=== PATIENT | female | born 1970 | race Caucasian/White ===

== ENCOUNTER → 2017-06-10 11:01 | Outpatient (CLI) | payer OTHER, SELFPAY ==
--- NOTE | 2017-06-10 11:04 | HPBI_ITS ---
MAMMOGRAPHY - BILATERAL SCREENING REASON FOR EXAM: Female, 46 years old. Routine annual screening examination. PERTINENT HISTORY: Mother with breast cancer. TECHNIQUE: Digital bilateral breast juan c (3D mammographic acquisition) in the CC and MLO projections. 2-D mediolateral oblique (MLO) and craniocaudad (CC) views of both breasts were obtained. CAD: Full Field Digital Mammography with Computer Added Detection was performed. COMPARISON: Comparison is made with prior study dated July 13, 2014. FINDINGS: Breast Composition: The breasts are heterogeneously dense, which may obscure small masses. There are no dominant masses or suspicious calcifications. No other significant abnormalities are identified. There has been no significant change since the prior study. HPBI/SCREENING MAMM (CAD), BILAT IMPRESSION: Stable bilateral screening mammogram. Yearly follow-up mammogram recommended. (A) ASSESSMENT CATEGORY: BIRADS Category 1: Negative. A letter regarding these results will be sent to the patient by the facility within 30 days. Approximately 10% of breast cancers are not detected by mammography. A normal mammogram should not delay biopsy of a clinically suspicious abnormality. [id number] Electronically Signed: Jovanny Souza MD at 12:45 EST Tel [phone], Service support ,
== END ==
PROVIDERS: Family Provider Internal Medicine; PCP Internal Medicine; Visit Provider Internal Medicine
DX: Z12.31 Encounter for screening mammogram for malignant neoplasm of breast (principal)
CPT/HCPCS: 77063; 77067

== ENCOUNTER → 2018-02-09 15:19 | Outpatient (CLI) | payer OTHER, SELFPAY ==
--- NOTE | 2018-02-09 15:23 | RAD_ITS ---
STUDY: X-RAY - LUMBAR SPINE REASON FOR EXAM: Female, 47 years old. Low back pain, left greater than right. TECHNIQUE: 5 view(s) of the lumbar spine were obtained. COMPARISON: None FINDINGS: Normal lumbar lordosis. There is no substantial scoliosis. There is a normal alignment of the vertebrae. Normal vertebral bodies. L3-4 small marginal osteophytes. L5-S1 mild disc space narrowing. The soft tissue structures are unremarkable. RAD/L/S Spine Min 4 Views IMPRESSION: Mild degenerative changes of lower lumbar spine. Electronically Signed: Gene Edmond MD at 7:29 EDT , Service support ,
== END ==
PROVIDERS: Family Provider Internal Medicine; PCP Internal Medicine; Referring Provider Nurse Practitioner; Visit Provider Nurse Practitioner
DX: M54.5 Low back pain (principal)
CPT/HCPCS: 72110

== ENCOUNTER 2018-02-21 14:30 | Outpatient (RCR) | payer OTHER, SELFPAY ==
--- NOTE | 2018-02-11 07:17 | HP.PTEVAL ---
Patient's Visit Information WOJCIECH GILES is a 47 year old F referred to Physical Therapy by Isabel Reyna with a diagnosis of LBP and sciatica. Date of Evaluation: 02/10/18 Physical Therapist: Juliann Lindo - Visit Plan Frequency: 2x /Week Duration: 4 Weeks Plan: Focus on lumbar ROM, pain free hip ROM, strengthen core, hip, lumbar and pelvic stabilization. Check for pelvic rotation - Subjective Subjective: Pt. c/o L LBP. Extreme pain began this past weekend; pain described as intense as giving . Having muscle spasms upon any forward trunk movement. Pt. thought menstrual cramp related, but too intense. Pt. thought could be kidney stone. Hx of kidney stone 1 year ago. Saw physcian earlier this week and he suspected herniated lumbar disc; radiographs showing lumbar degeneration. No MRI until after physical therapy. Pt. has been urinating more frequently and did urine test at appointment, no results. Sciatic pain on L side not an issue currently. Occasional numbness/tingling to mid L thigh. LBP located on L side, described as achy. Current pain 5/10, worst 10/10. Pt. 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 She is aware of her posture and makes sure she is in proper alignment. Takes Ambien at night and slept well last night. Recently got new bed that adjusts to the individual and is comfortable in it. Able to sit in hard back chair for about 5 minutes before pain. Can stand for about 30 minutes. Similar LBP has come and gone in past, but never this intense. Able to dress; takes breaks when cooking and has not cleaned yet. Has not been out of house much since the weekend. Medications include Prozac, Ambien. Goal to decrease pain. - Objective Gait: walks with posterior pelvis/ anterior trunk position,. Posture: rounded shoulders, sits on edge of chair with erect posture throughout session. Stairs: ascend stairs reciprocally with 1 HR, appears hesitant upon descending reciprocally. Dermatomes: LE intact bilat. AROM: lumbar flex. to mid calf, ext. approx 5 deg, side bend mid thigh, rotation approx 20 deg; motions did not appear to be end range due to pt. hesitation. L hip motions caused a different feel in L low back, pain and hesitation with ER/IR. Knee and ankle WFL. Able to toe and heel raise without UE support. Balance: SL 15+seconds bilat. Strength: L hip flex. and ext. 4/5, abd., add., 3+/5, IR/ER 3/5, L knee ext./flex 4/5, ankle 5/5 throughout. Core strength fair. Palpation: TTP PSIS on L and L piriformis near greater trochanter. ASIS aligned, tibial tuberosities L leg lower, malleoli L lower. After muscle energy, landmarks equal throughout. L ASIS decreased mobility upon palpation. Flexibility: no restriction hamstring, gastroc, soleus. Pain limited testing of L hamstring length. Special tests: Slump on L (+) - Goals Goal 1:: Patient will be I with HEP and progressions. Goal Time Frame: 4-6 Weeks Goal 2:: Patient will increase lumbar range of motion WFL and achieve pain free hip range of motion. Goal Time Frame: 4-6 Weeks Goal 3:: Patient will demonstrate pain equal or less than 3/10 for 1 week. Goal Time Frame: 4-6 Weeks Goal 4:: Patient will increase hip strength to 5/5 in order to maintain proper pelvic alignment. Goal Time Frame: 4-6 Weeks - Rehabilitation Potential Physical Therapy Diagnosis: Patient presents with hypomobility. Decreased lumbar range of motion and decreased hip strength along with pain and fear of movement limiting patient from functional participation in pain free activity and prolonged positioning. Rehabilitation Potential: Good - Anticipated Interventions Patient/Client Instruction: Educate patient on: Condition For the Purpose of:: To decrease pain, To increase ROM, To improve muscle performance and motor function, To increase tolerance to activity/condition/position, To improve endurance Therapeutic Exercise to Include: Strength training, Power training, Endurance training, Coordination, Agility training, Body mechanics, Flexibilty training, Active ROM, Dynamic Lumbar Stabilization For the Purpose of:: To decrease pain, To increase ROM, To improve nutrient delivery to tissue, To improve muscle performance and motor function, To improve ability to perform ADL's, To increase tolerance to activity/condition/position, To increase flexibility/ROM, To improve endurance, To assume or resume ADL's, To improve tolerance to ADL's TENS: Yes Cryotherapy (ice pack, ice massage): Yes Thermo therapy (hot pack): Yes Ultrasound (thermal/non thermal): Yes For the Purpose of:: To decrease pain Thank you for the opportunity to evaluate your patient. For Medicare and Medicare HMO plans, please review the plan of care and approve it. It will need to be FAXED BACK to us at [phone] for Medicare purposes. Please let me know if there are questions or concerns regarding this plan of care. Physician Signature: Date:
--- NOTE | 2018-03-02 15:24 | HP.PT.NRP ---
HP - Discharge Summary (1) - Patient Information WOJCIECH GILES was seen in my office for initial evaluation on 02/10/18. The following Plan of Care was established for this patient: Initial Frequency: 2x /Week Initial Duration: 4 Weeks - Anticipated Interventions Patient/Client Instruction: Educate patient on: Condition For the Purpose of:: To decrease pain, To increase ROM, To improve muscle performance and motor function, To increase tolerance to activity/condition/position, To improve endurance Therapeutic Exercise to Include: Strength training, Power training, Endurance training, Coordination, Agility training, Body mechanics, Flexibilty training, Active ROM, Dynamic Lumbar Stabilization For the Purpose of:: To decrease pain, To increase ROM, To improve nutrient delivery to tissue, To improve muscle performance and motor function, To improve ability to perform ADL's, To increase tolerance to activity/condition/position, To increase flexibility/ROM, To improve endurance, To assume or resume ADL's, To improve tolerance to ADL's TENS: Yes Cryotherapy (ice pack, ice massage): Yes Thermo therapy (hot pack): Yes Ultrasound (thermal/non thermal): Yes For the Purpose of:: To decrease pain This patient was last seen in our office . Pertinent comments regarding their Physical therapy will appear below: Patient called and reported that she was happy and having no more pain so she would like to be discharged to continue at home. At this point I will be discontinuing this patient from physical therapy. I would be happy to see this patient again in the future if found appropriate by the physician. Thank you! Juliann Lindo
== END 2018-02-21 19:00 | disposition home or self-care (01) ==
LOC: PT 14:30
PROVIDERS: Family Provider Internal Medicine; PCP Internal Medicine; Referring Provider Nurse Practitioner; Visit Provider Nurse Practitioner
DX: M54.40 Lumbago with sciatica, unspecified side (principal)
CPT/HCPCS: 97014; 97110; 97161; G0283

== ENCOUNTER → 2019-04-04 15:27 | Outpatient (CLI) | payer OTHER, SELFPAY ==
--- NOTE | 2019-04-04 15:30 | BI_ITS ---
MAMMOGRAPHY - BILATERAL SCREENING 3-D TOMOSYNTHESIS REASON FOR EXAM: Female, 48 years old. PERTINENT HISTORY: No significant family history. TECHNIQUE: 2-D mammograms and 3-D Tomosynthesis of the breast (s) were performed. CAD was performed. COMPARISON: June 10, 2017 FINDINGS: The breast composition is heterogeneous lesions that may obscure small masses. Normal microcalcifications. No dense spiculated masses or suspicious microcalcifications are identified. No architectural distortion is identified. There is no skin thickening or nipple retraction. There has been no significant change since the prior study of June 10, 2017. BI/SCREEN MAMM (CAD) W/GENOVEVA BILAT IMPRESSION: No mammographic signs of malignancy. Routine yearly mammograms recommended. ASSESSMENT CATEGORY: BIRADS Category 1: Negative. A letter regarding these results will be sent to the patient by the facility within 30 days. FOLLOW UP RECOMMENDATION: Yearly follow up mammogram recommended. (A) Approximately 10% of breast cancers are not detected by mammography. A normal mammogram should not delay biopsy of a clinically suspicious abnormality. Electronically Signed: Mary Ellen Tesfaye, at 12:48 EST Tel , Service support ,
== END ==
PROVIDERS: Family Provider Internal Medicine; PCP Internal Medicine; Referring Provider Internal Medicine; Visit Provider Internal Medicine
DX: Z12.31 Encounter for screening mammogram for malignant neoplasm of breast (principal)
CPT/HCPCS: 77063; 77067

== ENCOUNTER → 2020-06-20 13:20 | Outpatient (CLI) | payer OTHER, SELFPAY ==
--- NOTE | 2020-06-20 13:25 | CT_ITS ---
STUDY: CT ABDOMEN AND PELVIS WITH AND WITHOUT CONTRAST REASON FOR EXAM: Female, 49 years old. RECENT LEFT RENAL STONE -- STILL HAVING LEFT FLANK/BACK PAIN RADIATION DOSAGE (If Supplied By Facility): CTDIvol = ( 11.77 ) mGy, DLP = ( 1340.82 ) mGycm TECHNIQUE: Transaxial images were obtained from the dome of the diaphragm to the symphysis pubis without oral contrast. IV 100mL Isovue-300 was administered. Sagittal and coronal images were reconstructed. Individualized dose optimization techniques were used for this CT. COMPARISON: None. FINDINGS: The visualized lung bases are unremarkable. The visualized portions of the heart are within normal limits. Normal liver. Normal gallbladder and extrahepatic biliary system. Normal spleen. Normal pancreas. Normal bilateral adrenal glands. Normal right kidney. Normal left kidney. Normal visualized stomach. Normal small intestine. Normal colon. The appendix is visualized and appears normal. Normal abdominal aorta. Normal inferior vena cava. Normal retroperitoneum. Normal urinary bladder. Normal abdominal wall. Normal osseous structures. CT/CT Abd/Pelvis W/WO Contrast IMPRESSION: Normal unenhanced and enhanced CT of the abdomen and pelvis. Electronically Signed: Tom Kevin MD at 14:11 EST Tel , Service support ,
== END ==
PROVIDERS: PCP Internal Medicine; Referring Provider Internal Medicine; Visit Provider Internal Medicine
DX: R10.9 Unspecified abdominal pain (principal); Z87.442 Personal history of urinary calculi
CPT/HCPCS: 74178; Q9967

== ENCOUNTER → 2020-06-21 | Outpatient (CLI) | payer OTHER, SELFPAY ==
[2017-07-22 12:44] VITALS: BMI 24.0
[2020-06-21 13:18] LABS: Absolute Lymphocyte Count 0.58 X10^3/uL (0.83-4.51); Absolute Neutrophil Count 3.4 X10^3/uL (2.0-7.7); Basophil# 0.06 X10^3/uL; Basophil% 1.2 % (0-1); Eosinophil# 0.07 X10^3/uL; Eosinophils% 1.4 % (0-5); Hematocrit 37.9 % (37-47); Hemoglobin 12.7 g/dL (12.0-15.0); Lymphocyte # 0.58 X10^3/ul (4.0); Lymphocyte % 11.6 % (19-41); Mean Corp Hgb Conc 33.5 g/dL (32-36); Mean Corpuscular Hgb 31.8 pg (27.0-32.0); Mean Corpuscular Volume 94.8 fL (81-99); Mean Platelet Vol. 9.7 fl (6.2-12.0); Monocyte# 0.88 X10^3/uL; Monocyte% 17.6 % (0-10); NRBC Flagged by Analyzer 0 % (0-5); Neutrophil # 3.38 X10^3/uL (2.7-7.7); Neutrophil % 67.8 % (47-70); POSITIVE DIFFERENTIAL YES; Platelet Count 301 K/mm3 (150-450); RBC Distribution Width CV 11.8 % (11.6-14.6); RBC Distribution Width SD 41.3 fl (35.1-43.9)
[2020-06-21 13:22] LABS: CRP < 2.90 mg/L (0.0-3.0)
[2020-06-21 13:30] LABS: Erythrocyte Sedimentation Rate 11 mm/hr (0-30)
== END | disposition home or self-care (01) ==
PROVIDERS: PCP Internal Medicine; Referring Provider Internal Medicine; Visit Provider Internal Medicine
DX: J39.1 Other abscess of pharynx (principal); J32.9 Chronic sinusitis, unspecified
CPT/HCPCS: 85025; 85652; 86140; 87070; 87077

== ENCOUNTER → 2020-06-28 13:01 | Outpatient (CLI) | payer OTHER, SELFPAY ==
[2017-07-22 12:44] VITALS: BMI 24.0
--- NOTE | 2020-06-28 13:02 | BI_ITS ---
MAMMOGRAPHY - BILATERAL SCREENING REASON FOR EXAM: Female, 49 years old. Routine annual screening examination. PERTINENT HISTORY: Mother with breast cancer. TECHNIQUE: Digital bilateral breast genoveva (3D mammographic acquisition) in the CC and MLO projections. 2-D mediolateral oblique (MLO) and craniocaudad (CC) views of both breasts were obtained. CAD: Full Field Digital Mammography with Computer Added Detection was performed. COMPARISON: Comparison is made with prior study 04/04/2019 and 06/10/2017. FINDINGS: Breast Composition: The breasts are heterogeneously dense, which may obscure small masses. There is a 6.3 mm x 7.5 mm well-defined nodule in the deep upper lateral portion of the left breast. Correlation with ultrasound is recommended. No other significant abnormalities are identified. BI/SCRN MAMM (CAD)W/GENOVEVA BILAT IMPRESSION: 6.3 mm x 7.5 mm well-defined nodule in the deep upper lateral portion of left breast. Correlation with ultrasound is recommended. ASSESSMENT CATEGORY: BIRADS Category 0: Incomplete. Need additional imaging evaluation. A letter regarding these results will be sent to the patient by the facility within 30 days. Approximately 10% of breast cancers are not detected by mammography. A normal mammogram should not delay biopsy of a clinically suspicious abnormality. [id number] Electronically Signed: Jovanny Souza MD at 14:22 EST , Service support ,
== END ==
PROVIDERS: PCP Internal Medicine; Referring Provider Internal Medicine; Visit Provider Internal Medicine
DX: Z12.31 Encounter for screening mammogram for malignant neoplasm of breast (principal); N63.20 Unspecified lump in the left breast, unspecified quadrant; Z80.3 Family history of malignant neoplasm of breast
CPT/HCPCS: 77063; 77067

== ENCOUNTER → 2020-07-02 12:25 | Outpatient (CLI) | payer OTHER, SELFPAY ==
--- NOTE | 2020-07-02 12:26 | US_ITS ---
STUDY: ULTRASOUND BREAST - LEFT REASON FOR EXAM: Female, 49 years old. Abnormal screening mammogram. TECHNIQUE: Axial and longitudinal images of the LEFT breast were performed with a high resolution ultrasound transducer. # OF IMAGES: 46 COMPARISON: Comparison is made with prior mammogram dated 06/28/2020. FINDINGS: LEFT Breast: The mammographic abnormality corresponds to a 7 mm x 7 mm x 4 mm cyst at the 1 o''clock position of the breast at 7 cm from the nipple. US/Breast Limited Unilateral IMPRESSION: The mammographic abnormality corresponds to a 7 mm x 7 mm x 4 mm cyst at the 1 o''clock position of the breast at 7 cm from the nipple. ASSESSMENT CATEGORY: BIRADS Category 2: Benign. A letter regarding these results will be sent to the patient by the facility within 30 days. Electronically Signed: Jovanny Souza MD at 13:56 EST , Service support ,
== END ==
PROVIDERS: PCP Internal Medicine; Referring Provider Internal Medicine; Visit Provider Internal Medicine
DX: N60.02 Solitary cyst of left breast (principal)
CPT/HCPCS: 76642

== ENCOUNTER 2024-08-02 17:11 | Emergency (ER) | payer OTHER, SELFPAY ==
[2024-08-02 17:12] VITALS: BP 197/88; PULSE 107; RESP 18; TEMP 36.6; O2SAT 100; BMI 25.9
--- NOTE | 2024-08-02 17:31 | ED.VIS.DYS ---
HPI History of Present Illness Chief Complaint: Shortness of Breath PFSH PFSH Medical History History of kidney stones History of skin cancer Home Medications ?Medication ?Instructions ?Recorded ?Last Taken ?Type acetaminophen 325 mg tablet 325 mg PO Q4H PRN PRN Pain 03/22/17 Unknown History zolpidem 10 mg tablet 1 tab PO QHS 03/22/17 Unknown History fluoxetine 40 mg capsule (Prozac) 40 mg PO QDAY 07/12/17 Unknown History gabapentin 100 mg capsule 100 mg PO TID 08/02/24 Unknown History methylphenidate HCl 18 mg 18 mg PO 08/02/24 Unknown History tablet,extended release 24 hr Allergy/AdvReac Type Severity Reaction Status Date / Time Sulfa (Sulfonamide Allergy Intermediate Hives Verified 07/12/17 14:46 Antibiotics) Latex, Natural Rubber Allergy Mild itching Verified 07/12/17 14:46 Family History Other Breast cancer Heart disease Kidney disease Myocardial infarction Social History Smoking Status: Former smoker alcohol intake: current alcohol intake frequency: 0-2 drinks per day substance use type: does not use what type of physical activity do you participate in: none EXAM Physical Exam Const Vital Signs: 08/02/24 17:12 08/02/24 17:20 08/02/24 17:53 Temperature 97.9 F Temperature Source Oral Pulse Rate 107 H Respiratory Rate 18 Respiratory Effort Short of Breath Blood Pressure 197/88 H Blood Pressure Mean 124 Pulse Ox 100 Oxygen Delivery Method Room Air Room Air Room Air 08/02/24 19:12 Temperature Temperature Source Pulse Rate Respiratory Rate Respiratory Effort Blood Pressure 138/87 H Blood Pressure Mean 104 Pulse Ox 97 Oxygen Delivery Method Room Air MDM MDM MDM Narrative Medical decision making narrative: HISTORY OF PRESENT ILLNESS: 54-year-old female presents with concern for a side effect of the recent increase in gabapentin dosage. She notes last night she increased the dose. She states she feels like her throat is tightening. She notes shortness of breath and feeling dizzy. Notes 24 hours of symptoms. Denies fabio chest pain. Symptoms are exertional. No lower extremity edema. No bleeding diathesis. No vomiting or diarrhea noted. The patient denies recent surgery in the last 4 weeks or immobilization in the last 3 days, denies previous diagnosis of DVT or PE, hemoptysis, unilateral leg swelling or malignancy with treatment the last 6 months or palliative. No estrogen use noted. No cough fever chills noted. REVIEW OF SYSTEMS: Pertinent positives: Globus sensation, shortness of breath and dizziness Pertinent negatives: Chest pain, fever PHYSICAL EXAM: Nursing triage notes reviewed, Vital signs reviewed Constitutional: please see [facility] HENT: MMM Eyes: Pupils equal round and reactive to light, Extraocular muscles intact Neck: No stridor, no JVD, full neck ROM Lungs: Clear to auscultation, No wheezing or rales. No increased work of breathing, no conversational dyspnea, no accessory muscle use, no nasal flaring. No respiratory distress noted Heart: Regular rate and rhythm, No murmurs, No rubs and No gallops, 2+ distal pulses (radial, femoral, posterior tibial) in all extremities Abdomen: Soft, there is no tenderness, rigidity, rebound or guarding, no obvious peritoneal signs, no palpable pulsatile abdominal masses, no auscultated abdominal bruit : No CVAT Extremities: No edema Neuro: No new focal neurological deficits, cranial nerves II through XII intact, 5/5 strength in all present extremities. Intact sensation to light touch in all present extremities, 2+ reflexes bilateral patella tendons. Skin: No rash or lesions noted MEDICAL DECISION MAKING: Chief Complaint: As per HPI [facility] Narrative: I considered the following differential diagnosis: Arrhythmia, anemia, electro disturbance, CHF, ACS, PE I considered pulmonary malignancy potential etiology the patient lowers well score and as such low suspicion for PE ALL IMAGES (IF OBTAINED) HAVE BEEN PERSONALLY REVIEWED AND INTERPRETED BY MYSELF. EKG with normal sinus rhythm rate of 93, normal axis, no intervals, no STEMI CBC without leukocytosis, severe anemia, no thrombocytopenia. BMP without evidence of significant electrolyte abnormalities, no anion gap, no acute kidney injury. High-sensitivity troponin is negative, no evidence of myocardial ischemia I have personally reviewed the patient's chest x-ray. Chest x-ray is unremarkable for pulmonary edema, pneumothorax, pneumonia or focal cardiopulmonary abnormality. The synthesis of the patient's history, physical exam, labs and images suggest no acute life-limiting etiology. The etiology of patient's complaint zahra unclear however it is most likely not life-threatening. She is appropriate for discharge home. Strict return precaution were discussed. Follow-up instructions discussed. The patient and/or family, caregivers express understanding. The patient and/or family, caregivers agrees with the plan. Shared decision making: I will have a discussion with the patient and or visitors regarding risk/benefits of further testing or admission. They will be made aware of of the risk/benefits inherent in this decision they will be given the opportunity to voice understanding. Total critical care time today provided was at least 0 minutes. This excludes separately billable procedures. Critical care time (if documented) is secondary to the patient having high probability of clinically significant/life threatening deterioration in the patient's condition which required my urgent intervention. Impression: 1. Shortness of breath 2. Adverse medication Dispo: Discharge This note was generated with [employer] dictation software. It may contain incorrect words, spelling, and punctuation that were not noted in review of the chart prior to signing. Lab Data Labs: Laboratory Results - last 24 hr 08/02/24 08/02/24 18:40 19:00 WBC 8.5 RBC 4.37 Hgb 14.1 Hct 39.1 MCV 89.5 MCH 32.3 H MCHC 36.1 H RDW Std Deviation 36.8 RDW Coeff of Colin 11.3 L Plt Count 323 MPV 9.0 Immature Gran % (Auto) 0.200 Neut % (Auto) 82.0 H Lymph % (Auto) 8.9 L Hemphill % (Auto) 8.3 Eos % (Auto) 0.2 Baso % (Auto) 0.4 Absolute Neuts (auto) 7.0 Absolute Lymphs (auto) 0.76 L Nucleated RBC % 0 Sodium 131 L Potassium 4.4 Chloride 95 L Carbon Dioxide 23.5 Anion Gap 12 BUN 16 Creatinine 0.75 Estim Creat Clear Calc 82.54 Est GFR (MDRD) Non-Af 95 BUN/Creatinine Ratio 21.8 H Glucose 86 Calcium 9.2 Troponin T High Sens 9 Radiography Diagnostic Testing: Clinical Impression(s) from Imaging Studies Chest X-Ray 08/02/24 18:40 IMPRESSION: Negative Chest. Reading Location: [facility] Discharge Plan Triage Chief Complaint: Shortness of Breath ED Provider: Brayan Barnes Dx/Rx/DC Orders Instructions: ED Dyspnea Prescriptions: No Action fluoxetine [Prozac] 40 mg capsule 40 mg PO QDAY acetaminophen 325 MG tablet 325 mg PO Q4H PRN PRN (Reason: Pain) zolpidem 10 MG tablet 1 tab PO QHS Patient Comments: gabapentin 100 mg capsule 100 mg PO TID methylphenidate HCl 18 mg tablet extended release 24hr 18 mg PO Primary Care Provider: Abby Cabral Referrals: Estela Partida DO [Med Staff - [facility]] - Activity Restrictions/Additional Instructions: Thank you for trusting us with your care today! Your labs images were reassuring. No sign of damage to your heart, heart failure, abnormal heart rhythms etc. Please take Tylenol (2 pills, 650 mg), ibuprofen (2 pills, 400 mg) every 6 hours as needed for pain and fever control. Please return to the emergency department if your symptoms change or worsen. Please follow with your primary care physician for further outpatient evaluation and management. Specifically assess medical appropriateness for Holter monitor, echocardiogram, possibly stress test. Print Language: British Disposition Disposition: Home, Self Care
--- NOTE | 2024-08-02 17:50 | EKG12_ITS ---
Test Reason : Blood Pressure : */* mmHG Vent. Rate : 93 BPM Atrial Rate : 93 BPM P-R Int : 128 ms QRS Dur : 82 ms QT Int : 356 ms P-R-T Axes : 60 43 49 degrees QTcB Int : 442 ms Normal sinus rhythm Normal ECG Confirmed by CURTIS DIALLO, ADRIANNE ([id number]), fashion editor GUANACO ADAME ([id number]) on 08/03/2024 8:06:55 AM Referred By: Confirmed By: ADRIANNE ACEVEDO MD
--- NOTE | 2024-08-02 18:40 | RAD_ITS ---
PROCEDURE: CHEST 1 VIEW (PORTABLE) 08/02/2024 REASON FOR EXAM: 54-year-old female, shortness of breath and dizziness. History of anxiety. TECHNIQUE: Frontal view of the chest. COMPARISON: None. FINDINGS: Hardware: None. Heart: Cardiac and mediastinal contours are stable. Lungs: No focal consolidation, pleural effusion or pneumothorax. Bones: The bones are unremarkable. RAD/Chest 1 View (Portable) IMPRESSION: Negative Chest. Reading Location: [id number]
--- NOTE | 2024-08-02 18:50 | ED.RN ---
Pt refusing IV.
--- NOTE | 2024-08-02 18:54 | ED.RN ---
when attempting to start an ultrasound guided IV, pt stops this RN and states this is going to hurt like hell, i dont want this. this rn explains that if pt were to require a CT scan or further blood work after the initial, we would have to proceed with the IV. pt states well i won't need a CT scan. if i was having heart attack maybe i would do the iv. this rn states understanding. pt agreeable to straight stick for blood draw. this rn fails attempt to get bloodwork after two other staff member attempts. lab called to get bloodwork. Dr. Barnes and charge nurse notified.
[2024-08-02 19:10] LABS: Anion Gap 12 (5-15); BUN 16 mg/dL (4-19); BUN/Creat Ratio 21.8 RATIO (10-20); Calcium,Total 9.2 mg/dL (7.6-11.0); Carbon Dioxide 23.5 mmol/L (21.0-32.0); Chloride 95 mmol/L (98-108); Creatinine, Serum 0.75 mg/dL (0.70-1.20); EST Glomerular Filtration Rate 95 (>60); Estimated Creatinine Clearance 82.54 ml/min (50-250); Glucose 86 mg/dL (70-99); Potassium 4.4 mmol/L (3.3-5.1); Sodium Level 131 mmol/L (133-145); Troponin T High Sensitivity 9 ng/L (<=14)
[2024-08-02 19:12] VITALS: BP 138/87; O2SAT 97
[2024-08-02 19:13] LABS: Absolute Lymphocyte Count 0.76 X10^3/uL (0.83-4.51); Basophil# 0.03 X10^3/uL; Basophil% 0.4 % (0-1); Eosinophil# 0.02 X10^3/uL; Eosinophils% 0.2 % (0-5); Hematocrit 39.1 % (37-47); Hemoglobin 14.1 g/dL (12.0-15.0); Lymphocyte # 0.76 X10^3/ul (0.83-4.51); Lymphocyte % 8.9 % (19-41); Mean Corp Hgb Conc 36.1 g/dL (32-36); Mean Corpuscular Hgb 32.3 pg (27.0-32.0); Mean Corpuscular Volume 89.5 fL (81-99); Monocyte# 0.71 X10^3/uL; Monocyte% 8.3 % (0-10); NRBC Flagged by Analyzer 0 % (0-5); Platelet Count 323 K/mm3 (150-450); RBC Distribution Width CV 11.3 % (11.6-14.6); RBC Distribution Width SD 36.8 fl (35.1-43.9); Red Blood Count 4.37 M/mm3 (4.2-5.4); White Blood Count 8.5 K/mm3 (4.4-11.0)
[2024-08-02 20:01] VITALS: BP 136/87; PULSE 82; RESP 18; TEMP 36.8; O2SAT 99
== END 2024-08-02 20:04 | disposition home or self-care (01) ==
PROVIDERS: Emergency Provider Emergency Medicine; PCP Nurse Practitioner Family; Visit Provider Emergency Medicine
DX: R06.02 Shortness of breath (principal); T42.6X5A Adverse effect of other antiepileptic and sedative-hypnotic drugs, initial encounter; Z87.891 Personal history of nicotine dependence
CPT/HCPCS: 36415; 71045; 80048; 84484; 85025; 93005; 99283; A4216

== ENCOUNTER 2024-08-29 12:23 | Observation (INO) | payer OTHER, SELFPAY ==
[2024-08-29] VITALS (11 sets, daily range): BP systolic 133–196; BP diastolic 80–104; PULSE 90–116; RESP 14–21; TEMP 36.3–36.8; O2SAT 96–116; BMI 25.0; BMI 24.5
[2024-08-29 13:14] LABS: Absolute Lymphocyte Count 0.65 X10^3/uL (0.83-4.51); Absolute Neutrophil Count 4.4 X10^3/uL (2.0-7.7); Basophil# 0.04 X10^3/uL; Basophil% 0.7 % (0-1); Eosinophil# 0.02 X10^3/uL; Eosinophils% 0.4 % (0-5); Hematocrit 38.8 % (37-47); Hemoglobin 13.6 g/dL (12.0-15.0); Lymphocyte # 0.65 X10^3/ul (0.83-4.51); Lymphocyte % 11.6 % (19-41); Mean Corp Hgb Conc 35.1 g/dL (32-36); Mean Corpuscular Hgb 31.3 pg (27.0-32.0); Mean Corpuscular Volume 89.4 fL (81-99); Mean Platelet Vol. 9.3 fl (6.2-12.0); Monocyte# 0.46 X10^3/uL; Monocyte% 8.2 % (0-10); NRBC Flagged by Analyzer 0 % (0-5); Neutrophil # 4.43 X10^3/uL (2.7-7.7); Neutrophil % 78.9 % (47-70); Platelet Count 339 K/mm3 (150-450); RBC Distribution Width CV 11.6 % (11.6-14.6); RBC Distribution Width SD 37.8 fl (35.1-43.9); Red Blood Count 4.34 M/mm3 (4.2-5.4); White Blood Count 5.6 K/mm3 (4.4-11.0)
[2024-08-29 13:22] LABS: Prothrombin Time (Protime)PT. 12.9 SECONDS (11.7-14.9)
[2024-08-29 13:26] LABS: Partial Thromboplast Time 25.3 Seconds (24.1-36.2)
--- NOTE | 2024-08-29 13:27 | CT_ITS ---
PROCEDURE: CTA HEAD AND NECK W/ CONTRAST 08/29/2024 REASON FOR EXAM: LEFT ARM PARESTHESIA, BALANCE Hypertension. TECHNIQUE: CTA imaging of the head and neck from the aortic arch to the skull vertex with out constrast and with intravenous contrast. Coronal and Sagittal reconstruction series were provided. 3D post processing with reformations, Maximum intensity projection (MIPs) Volume rendering and Shaded surface rendering was provided. CONTRAST: Isovue 370 VOLUME: 100 mL One or more dose reduction techniques were used (e.g., Automated exposure control, adjustment of the mA and/or kV according to patient size, use of iterative reconstruction technique). RADIATION DOSE SUMMARY: CTDlvol: 24 mGy DLP: 1474.71 mGycm COMPARISON: None FINDINGS: Aortic Arch: Normal size and branching pattern. No significant atherosclerotic plaque. Brachiocephalic and Subclavians: Unremarkable RIGHT Carotid: Right CCA: Unremarkable. Right ICA: Unremarkable. Right ECA: Unremarkable. LEFT Carotid: Left CCA: Unremarkable. Left ICA: Unremarkable. Left ECA: Unremarkable. Vertebrals: Codominant. Arise from the subclavians. Both vertebrals form the basilar. RIGHT Vertebral: Unremarkable. LEFT Vertebral: Unremarkable. Anatomy: [place] anatomy is normal. Aneurysm or avm: No intracranial aneurysms or large vascular malformations are identified. Anterior cerebral arteries: Unremarkable: Middle cerebral arteries: Unremarkable. Basilar artery: Unremarkable. Posterior cerebral arteries: Unremarkable. Other major branches of the posterior circulation: Unremarkable. Major venous structures: Unremarkable. Other findings: Neck: No lymphadenopathy. Lungs: Lung apices are clear. Bones: Unenhanced CT scan of the brain is unremarkable. CT/CTA Head AND Neck W/ Contrast IMPRESSION: Unremarkable examination. Reading Location: [place] [id number]
[2024-08-29 13:32] LABS: Bedside Glucose 117 mg/dL (74-106)
--- NOTE | 2024-08-29 13:46 | ED.VIS.STROK ---
HPI History of Present Illness Chief Complaint: Dizziness Narrative Narrative: Presents for evaluation symptom onset yesterday morning upon awakening 7 AM. States lightheaded, facial tingling left side along with numbness down the whole left arm. States there is mild tingling upper left leg. Reported generalized weakness. Granddaughter who is present states patient had trouble getting words out did not make sense like she was getting out of anesthesia. There is transient left-sided headache. No slurring of speech. No stroke history. Reported she had dry needling treatment this past Wednesday from physical therapy felt shocked down her left arm during that time. She has had cervical issues in the past. Numbness to the arm is new. She still feels subjective numbness down the whole arm currently. Denies dizzy or spinning sensations. Reports trouble with balance. Prior similar symptoms: No PFSH PFSH Medical History (Updated 08/29/24 @ 15:[address] Savannah Gonzalez MD) History of kidney stones History of skin cancer Home Medications ?Medication ?Instructions ?Recorded ?Last Taken ?Type acetaminophen 325 mg tablet 325 mg PO Q4H PRN Pain 03/22/17 08/28/24 History zolpidem 10 mg tablet 1 tab PO QHS 03/22/17 08/28/24 History fluoxetine 40 mg capsule (Prozac) 40 mg PO QDAY 07/12/17 08/27/24 History gabapentin 100 mg capsule 100 mg PO TID 08/02/24 Unknown History methylphenidate HCl 18 mg 18 mg PO DAILY 08/02/24 08/28/24 History tablet,extended release 24 hr estradiol 0.05 mg/24 hr semiweekly 1 patch transdermal .COMPLEX 08/29/24 08/27/24 History transdermal patch (Kari) ibuprofen 200 mg tablet (Advil) 200 mg PO Q8H PRN pain 08/29/24 Unknown History progesterone micronized 100 mg 100 mg PO DAILY 08/29/24 08/27/24 History capsule spironolactone 50 mg tablet 50 mg PO DAILY 08/29/24 08/25/24 History tretinoin 0.1 % topical cream 1 applic topical QHS 08/29/24 08/22/24 History triamcinolone acetonide 0.1 % 1 applic topical 4X/DAY burn from 08/29/24 08/28/24 History topical cream retin a Allergy/AdvReac Type Severity Reaction Status Date / Time Sulfa (Sulfonamide Allergy Intermediate Hives Verified 08/29/24 12:28 Antibiotics) Latex, Natural Rubber Allergy Mild itching Verified 08/29/24 12:28 Family History Other Breast cancer Heart disease Kidney disease Myocardial infarction Social History Smoking Status: Never smoker alcohol intake: current alcohol intake frequency: 0-2 drinks per day substance use type: does not use what type of physical activity do you participate in: none ROS ROS ED Constitutional Constitutional ED: Denies chills, fever(s) or sweats ENT ENT ED: Denies sore throat Cardiovascular Cardiovascular: Denies chest pain, leg edema, palpitations or racing heartbeat Respiratory/Chest Respiratory/Chest: Denies cough, dyspnea or dyspnea on exertion Gastrointestinal Gastrointestinal: Denies abdominal pain, diarrhea, nausea or vomiting Genitourinary Genitourinary ED: Denies dysuria, hematuria or urinary frequency Musculoskeletal Musculoskeletal: Denies back pain, extremity pain or neck pain Integumentary Denies rash or wounds Neurologic Neurologic: Reports headache(s), paresthesias and weakness EXAM Physical Exam Const Vital Signs: 08/29/24 12:24 08/29/24 13:12 08/29/24 13:15 Temperature 97.3 F L Temperature Source Oral Pulse Rate 116 H 101 H Respiratory Rate 18 20 H Blood Pressure 196/98 H 163/104 H Blood Pressure Mean 130 123 Pulse Ox 116 98 Oxygen Delivery Method Room Air Room Air Room Air 08/29/24 13:45 08/29/24 14:15 08/29/24 14:45 Temperature Temperature Source Pulse Rate 92 95 105 H Respiratory Rate 15 21 H 14 Blood Pressure 167/94 H 167/86 H 160/80 H Blood Pressure Mean 118 113 106 Pulse Ox 100 100 100 Oxygen Delivery Method Room Air Room Air Room Air 08/29/24 15:00 Temperature Temperature Source Pulse Rate 101 H Respiratory Rate 19 H Blood Pressure 154/82 H Blood Pressure Mean 102 Pulse Ox 96 Oxygen Delivery Method Room Air Positive well nourished and well developed General Appearance ED: well developed and NAD HEENT Reports moist mucous membranes normocephalic and atraumatic Eyes General Eye ED: Yes normal appearance of both eyes Neck full ROM Chest Wall Chest: Negative for tenderness Resp normal respiratory effort and normal air movement Effort and Inspection: symmetric chest movement; Negative for respiratory distress Cardio regular rate, regular rhythm and no murmurs Peripheral Pulses: pulses 2+ throughout GI normal to inspection, nondistended, normoactive bowel sounds and non-tender Palpation: Negative for guarding or rebound tenderness present Extremity normal to inspection General Extremety ED: Negative for edema or tenderness General Extremity: Negative for edema Neuro oriented x3, CN's II-XII intact bilaterally and no sensory deficits noted Neuro Narrative: Cerebellar upper and lower intact and symmetric. No weakness of the upper or lower extremities bilaterally. NIH of 0. Sensorium / Orientation: awake and alert Skin no rashes or lesions noted and no wounds MDM MDM MDM Narrative Medical decision making narrative: Interventions / MDM: Differential diagnosis: Left arm paresthesia, TIA Diagnosis considered but do not suspect: Intracranial hemorrhage however CT negative. Clinically doubt cervical radiculopathy. My EKG interpretation: Sinus rate of 97, no ST changes. Imaging independently reviewed and interpreted by myself: CT angiogram head and neck: No acute process read by radiology.: External documents reviewed: N/A Test considered but not ordered:N/A ED course: Patient presenting with numbness left arm balance issues over 24 hours. NIH currently 0. Reported by granddaughter trouble with normal speech. Stroke workup initiated with CT angiogram head and neck for further evaluation. CT angiogram negative EKG sinus rhythm. Reevaluation still slight subjective numbness left arm. Reported speech issues, numbness down the whole arm, less likely cervical radiculopathy. New onset symptoms of numbness, speech issues yesterday, I discussed with hospitalist Dr. Gonzalez for admission for MRI. Patient did report significant claustrophobia with MRI studies. Re-evaluation: stable Disposition discussed with patient/family/significant other: Patient and family Case discussed with consulting clinician: Hospitalist This note was generated with [employer] dictation software. It may contain incorrect words, spelling, and punctuation that were not noted in checking the note before signing. Lab Data Attestation: I reviewed the patient's lab results. Labs: Laboratory Results - last 24 hr 08/29/24 08/29/24 13:03 13:09 WBC 5.6 RBC 4.34 Hgb 13.6 Hct 38.8 MCV 89.4 MCH 31.3 MCHC 35.1 RDW Std Deviation 37.8 RDW Coeff of Colin 11.6 Plt Count 339 MPV 9.3 Immature Gran % (Auto) 0.200 Neut % (Auto) 78.9 H Lymph % (Auto) 11.6 L [place] % (Auto) 8.2 Eos % (Auto) 0.4 Baso % (Auto) 0.7 Absolute Neuts (auto) 4.4 Absolute Lymphs (auto) 0.65 L Nucleated RBC % 0 PT 12.9 INR 1.0 APTT 25.3 Sodium 133 Potassium 3.9 Chloride 99 Carbon Dioxide 21.2 Anion Gap 13 BUN 11 Creatinine 0.72 Estim Creat Clear Calc 84.53 Est GFR (MDRD) Non-Af 101 BUN/Creatinine Ratio 15.9 Glucose 122 H Calcium 9.3 Troponin T High Sens 9 POC Glucose 117 H Radiography Diagnostic Testing: Clinical Impression(s) from Imaging Studies Head/Neck CTA 08/29/24 13:27 IMPRESSION: Unremarkable examination. Reading Location: [facility]- Discharge Plan Disposition Disposition: Acute Care Hospital [facility] Discharge Date/Time: 08/29/24 15:27 NIHSS NIHSS 1a. Level of Consciousness: 0 - Alert; keenly responsive 1b. LOC Questions: 0 - Answers BOTH questions correctly 1c. LOC Commands: 0 - Performs BOTH tasks correctly 2. Best Gaze: 1 - Normal 3. Visual: 0 - No visual loss 4. Facial Palsy: 0 - Normal symmetrical movements 5a. Left Arm: 0 - No drift; arm holds 90 (or 45) degrees for full 10 seconds 5b. Right Arm: 0 - No drift; arm holds 90 (or 45) degrees for full 10 seconds 6a. Left Le - No drift; leg holds 30-degree position for full 5 seconds 6b. Right Le - No drift; leg holds 30-degree position for full 5 seconds 7. Limb Ataxia: 0 - Absent 8. Sensory: 0 - Normal; no sensory loss 9. Best Language: 0 - No aphasia; normal 10. Dysarthria: 0 - Normal 11. Extinction and Inattention: 0 - No abnormality Total: 0 Stroke Questions Stroke Team Activated: No (Symptom onset over 24 hours.)
[2024-08-29 14:11] LABS: Anion Gap 13 (5-15); BUN 11 mg/dL (4-19); BUN/Creat Ratio 15.9 RATIO (10-20); Calcium,Total 9.3 mg/dL (7.6-11.0); Carbon Dioxide 21.2 mmol/L (21.0-32.0); Chloride 99 mmol/L (98-108); Creatinine, Serum 0.72 mg/dL (0.70-1.20); EST Glomerular Filtration Rate 101 (>60); Estimated Creatinine Clearance 84.53 ml/min (50-250); Glucose 122 mg/dL (70-99); Potassium 3.9 mmol/L (3.3-5.1); Sodium Level 133 mmol/L (133-145); Troponin T High Sensitivity 9 ng/L (<=14)
--- NOTE | 2024-08-29 15:13 | PCM.HP.STD ---
HPI - General General Date of Admission: 08/29/24 Date of Service: 08/29/24 Chief Complaint: Left arm numbness HPI Narrative WOJCIECH GILES, is a 54-year-old female with history of anxiety, depression, ADHD, insomnia, kidney stones presented to [facility] ED 08/29/2024 due to some left-sided neurologic symptoms.? Symptoms started yesterday morning upon awakening at 7 AM and she noted feeling lightheaded with facial tingling on the left side and numbness down the left arm as well as some mild tingling in upper left leg with generalized weakness.? Reportedly patient also had trouble getting words out and not making sense. Did have dry needling treatment last Wednesday from physical therapy and felt a shock down her left arm at that time but the numbness in her arm is new.? Still feels the subjective numbness down the whole arm and balance difficulties without dizziness or spinning sensations.? In the ED patient afebrile, initial heart rate 116 blood pressure 196/98, respiratory rate 18 patient saturating well on room air.? CBC and CMP fairly benign aside from slightly elevated glucose of 122, troponin within normal limits.? CTA of head and neck unremarkable.? Due to patient's abnormal neurologic complaints that have persisted hospitalist contacted for admission.? Patient evaluated at bedside and reports history as above with the left-sided numbness in the arm and some left facial tingling and is intermittently felt out of it and will intermittently also feel some lightheaded sensation, reports that she has had tingling in the left arm and neck due to her cervical spine before but has not had these global problems like the intermittent word finding difficulty and lightheaded symptoms. Presently only reports the numbness in the left arm with resolution of facial tingling but still feels intermittently lightheaded and not like herself which is present currently. Denies any headache. [facility] Medical History (Updated 08/29/24 @ 15:[address] Savannah Gonzalez MD) History of kidney stones History of skin cancer Home Medications ?Medication ?Instructions ?Recorded ?Last Taken ?Type acetaminophen 325 mg tablet 325 mg PO Q4H PRN Pain 03/22/17 08/28/24 History zolpidem 10 mg tablet 1 tab PO QHS 03/22/17 08/28/24 History fluoxetine 40 mg capsule (Prozac) 40 mg PO QDAY 07/12/17 08/27/24 History gabapentin 100 mg capsule 100 mg PO TID 08/02/24 Unknown History methylphenidate HCl 18 mg 18 mg PO DAILY 08/02/24 08/28/24 History tablet,extended release 24 hr estradiol 0.05 mg/24 hr semiweekly 1 patch transdermal .COMPLEX 08/29/24 08/27/24 History transdermal patch (Kari) ibuprofen 200 mg tablet (Advil) 200 mg PO Q8H PRN pain 08/29/24 Unknown History progesterone micronized 100 mg 100 mg PO DAILY 08/29/24 08/27/24 History capsule spironolactone 50 mg tablet 50 mg PO DAILY 08/29/24 08/25/24 History tretinoin 0.1 % topical cream 1 applic topical QHS 08/29/24 08/22/24 History triamcinolone acetonide 0.1 % 1 applic topical 4X/DAY burn from 08/29/24 08/28/24 History topical cream retin a Allergy/AdvReac Type Severity Reaction Status Date / Time Sulfa (Sulfonamide Allergy Intermediate Hives Verified 08/29/24 12:28 Antibiotics) Latex, Natural Rubber Allergy Mild itching Verified 08/29/24 12:28 Family History Other Breast cancer Heart disease Kidney disease Myocardial infarction Social History Smoking Status: Never smoker alcohol intake: current alcohol intake frequency: 0-2 drinks per day substance use type: does not use what type of physical activity do you participate in: none ROS ROS Narrative General: Denies fever/chills HENT: Denies headache, denies stuffy nose, denies sore throat EYES: Denies changes in vision Resp: Denies cough, denies shortness of breath Cardiac: Gets some upper left-sided chest and shoulder squeezing when her neck and arm are bothering her GI: Denies abdominal pain, denies changes in bowel, denies nausea/vomiting : Denies changes in urination Extremity: Denies swelling MSK: + Generalized weakness Neuro: Endorses left-sided arm numbness Heme: Denies any bleeding or bruising Skin: Denies rashes Psychiatric: No complaints voiced Vital Signs Vital Signs Vital Signs: 08/29/24 12:24 08/29/24 13:12 08/29/24 13:15 Temperature 97.3 F L Temperature Source Oral Pulse Rate 116 H 101 H Respiratory Rate 18 20 H Blood Pressure 196/98 H 163/104 H Blood Pressure Mean 130 123 Pulse Ox 116 98 Oxygen Delivery Method Room Air Room Air Room Air 08/29/24 13:45 08/29/24 14:15 08/29/24 14:45 Temperature Temperature Source Pulse Rate 92 95 105 H Respiratory Rate 15 21 H 14 Blood Pressure 167/94 H 167/86 H 160/80 H Blood Pressure Mean 118 113 106 Pulse Ox 100 100 100 Oxygen Delivery Method Room Air Room Air Room Air 08/29/24 15:00 Temperature Temperature Source Pulse Rate 101 H Respiratory Rate 19 H Blood Pressure 154/82 H Blood Pressure Mean 102 Pulse Ox 96 Oxygen Delivery Method Room Air Weight Weight: 66.088 kg Body Mass Index (BMI) 25.0 Physical Exam Narrative General: Alert, oriented, no apparent distress HEENT: Atraumatic, normocephalic Eyes: Anicteric, normal conjunctiva, extraocular movements intact, pupils equal Neck: Supple Respiratory: Clear to auscultation bilaterally, normal respiratory effort Cardiovascular: Regular rate and rhythm GI: Soft, nontender, nondistended Extremities: No edema Musculoskeletal: Strength 5 out of 5 in right upper extremity, 5 out of 5 left upper extremity, 5 out of 5 right lower extremity, 5 out of 5 left lower extremity Neuro: No overt focal neurological deficits, cranial nerves II through XII intact, [id number] without significant difficulty bilaterally, when feeling both arms and asking felt the same she said yes from shoulder all the way down to hand Skin: No rashes appreciated Psych: Cooperative Results Lab / Micro Data 08/29/24 13:03 08/29/24 13:03 Labs: Laboratory Results - last 24 hr 08/29/24 13:03: WBC 5.6, RBC 4.34, Hgb 13.6, Hct 38.8, MCV 89.4, MCH 31.3, MCHC 35.1, RDW Std Deviation 37.8, RDW Coeff of Colin 11.6, Plt Count 339, MPV 9.3, Immature Gran % (Auto) 0.200, Neut % (Auto) 78.9 H, Lymph % (Auto) 11.6 L, [place] % (Auto) 8.2, Eos % (Auto) 0.4, Baso % (Auto) 0.7, Absolute Neuts (auto) 4.4, Absolute Lymphs (auto) 0.65 L, Nucleated RBC % 0, PT 12.9, INR 1.0, APTT 25.3, Sodium 133, Potassium 3.9, Chloride 99, Carbon Dioxide 21.2, Anion Gap 13, BUN 11, Creatinine 0.72, Estim Creat Clear Calc 84.53, Est GFR (MDRD) Non-Af 101, BUN/Creatinine Ratio 15.9, Glucose 122 H, Calcium 9.3, Troponin T High Sens 9 08/29/24 13:09: POC Glucose 117 H Imaging Radiology Impression Head/Neck CTA 08/29/24 13:27 IMPRESSION: Unremarkable examination. Reading Location: [facility] Assessment & Plan Assessment/Plan (1) Left arm numbness: PLAN: Plan # Left arm numbness -Symptoms were present yesterday at 7 AM when patient woke up, outside window for any intervention -Admit to tele -CTA head and neck with no acute process -MRI ordered, will obtain MRI of the brain given her more global symptoms and also had MRI of the neck to assess for any change or worsening pathology -Order IV Ativan given patient's reports of severe claustrophobia -NIH q4hr -asa, statin -Echo w/ bubble study -PT/OT/Speech eval -Teleneuro consult ordered - Given timing is greater than 24 hours no need for permissive hypertension at this time #Depression/anxiety -Continue home medications # Cervical radiculopathy - Patient reports previously following with Dr. Nicole and managing her neck pain conservatively - Patient established with [facility] in September and is presently undergoing PT - Did stop her gabapentin and Flexeril couple of weeks ago because she did not like how it made her feel - Will scan MRI of neck however given global symptoms as well patient will also obtain MRI of the brain is being admitted for stroke rule out as above #DVT ppx: Michele Gonzalez MD Time spent in the patient's overall evaluation, decision-making process, review of diagnostic data, adjustment of management, discussion with other providers, nursing and ancillary staff involved in patient's care documentation, 57 Minutes Charges/Coding Visit Charges Inpatient E&M: 86935 Init Hosp L2
--- NOTE | 2024-08-29 15:22 | ECHOD_ITS ---
Reason For Study Reason For Study: TIA/CVA Procedure This was a 2D Doppler, Color Flow transthoracic echocardiogram. Exam performed portable in patient room. Left Ventricle Normal LV size. Left ventricular systolic function is normal. The left ventricular ejection fraction is 60 %. No regional wall motion abnormalities noted. Right Ventricle Normal RV size. Normal systolic function. Atria Normal left atrium. Normal right atrium. Bubble contrast study is negative for PFO/ASD. Mitral Valve Normal mitral valve. Tricuspid Valve Normal tricuspid valve. Aortic Valve Trisinus/trileaflet aortic valve. Pulmonic Valve Normal pulmonic valve. Great Vessels Normal aortic root. The pulmonary artery is normal size. Inferior vena cava collapse with respiration. Pericardium/Pleural No pericardial effusion. Medication Performed a rapid injection of agitated mix of 9 cc saline and 1cc air to assess for atrial septal defect. MMode/2D Measurements & Calculations LVIDd: 4.6 cm IVSd: 0.95 cm LAV(MOD- bp): 39.3 ml LVIDs: 3.6 cm LVPWd: 0.90 cm RVDd: 2.7 cm FS: 22.0 % LAV(MOD- bp) Indexed: 23.0 ml/m2 LAV(MOD- sp2): 40.1 ml LAV(MOD- sp4): 35.2 ml LA dimension(2D): 3.2 cm LA A4 area: 14.8 cm2 RA A4 area: 12.0 cm2 TAPSE: 2.6 cm Time Measurements MV dec time: 0.22 sec Doppler Measurements & Calculations MV E max alejandro: 97.1 cm/sec Lat Peak E' Alejandro: 13.0 cm/sec Med Peak E' Alejandro: 10.5 cm/sec MV A max alejandro: 92.7 cm/sec E/E' lat: 7.5 E/E' med: 9.2 MV E/A: 1.0 MV V2 max: 111.3 cm/sec MV P1/2t max alejandro: 111.3 cm/sec Ao V2 max: 166.3 cm/sec MV max P.0 mmHg MV P1/2t: 67.1 msec Ao max P.1 mmHg MV V2 mean: 68.5 cm/sec MV dec slope: 486.1 cm/sec2 Ao V2 mean: 104.4 cm/sec MV mean P.2 mmHg Ao mean P.1 mmHg MV V2 VTI: 25.0 cm MVA(P1/2t): 3.3 cm2 Ao V2 VTI: 32.9 cm AV (velocity ratio): 0.86 LV V1 max: 139.9 cm/sec PA V2 max: 125.1 cm/sec LV V1 max P.8 mmHg LV V1 mean P.0 mmHg LV V1 mean: 93.2 cm/sec LV V1 VTI: 28.2 cm ECHO/Echo Complete Interpretation Summary Normal LV size. Left ventricular systolic function is normal. The left ventricular ejection fraction is 60 %. Bubble contrast study is negative for PFO/ASD. Ordering Physician: Savannah Gonzalez Performed By: Gallo El RCS
[2024-08-29 17:24] LABS: Troponin T High Sens 2 HR 23 ng/L (<=14)
[2024-08-29] MEDS: Aspirin 81 MG TAB.CHEW PO (17:36)
[2024-08-29 18:11] LABS: Troponin T High Sens 4 HR 33 ng/L (<=14)
[2024-08-29] MEDS: Atorvastatin Calcium 80 MG Tablet PO (21:08)
[2024-08-29] MEDS: Acetaminophen 325 MG Tablet 650 MG PO (21:19)
[2024-08-29] MEDS: MELATONIN 3 MG TABLET PO (23:45)
[2024-08-30] VITALS (11 sets, daily range): BP systolic 129–166; BP diastolic 70–91; PULSE 74–104; RESP 15–18; TEMP 36.3–37.3; O2SAT 92–100; BMI 24.5
[2024-08-30 06:18] LABS: Absolute Lymphocyte Count 1.27 X10^3/uL (0.83-4.51); Absolute Neutrophil Count 2.7 X10^3/uL (2.0-7.7); Basophil# 0.04 X10^3/uL; Basophil% 0.9 % (0-1); Eosinophil# 0.04 X10^3/uL; Eosinophils% 0.9 % (0-5); Hematocrit 38.9 % (37-47); Hemoglobin 13.6 g/dL (12.0-15.0); Lymphocyte # 1.27 X10^3/ul (0.83-4.51); Lymphocyte % 28.1 % (19-41); Mean Corpuscular Hgb 31.8 pg (27.0-32.0); Mean Corpuscular Volume 90.9 fL (81-99); Mean Platelet Vol. 9.5 fl (6.2-12.0); Monocyte# 0.45 X10^3/uL; NRBC Flagged by Analyzer 0 % (0-5); Neutrophil # 2.71 X10^3/uL (2.7-7.7); Neutrophil % 59.9 % (47-70); Platelet Count 322 K/mm3 (150-450); RBC Distribution Width CV 11.7 % (11.6-14.6); RBC Distribution Width SD 38.7 fl (35.1-43.9); Red Blood Count 4.28 M/mm3 (4.2-5.4); White Blood Count 4.5 K/mm3 (4.4-11.0)
[2024-08-30] MEDS: Lorazepam 2 MG/ML WCH Syringe 1 MG IV (08:53)
[2024-08-30] MEDS: Aspirin 81 MG TAB.CHEW PO (09:00)
--- NOTE | 2024-08-30 09:00 | MRI_ITS ---
PROCEDURE: SPINE CERVICAL (ROUTINE) 08/30/2024 REASON FOR EXAM: LEFT ARM NUMBNESS, MRI BRAIN PER STROKE PROTOCOL, known cervical stenosis. TECHNIQUE: Multiplanar and multisequence images were obtained without IV contrast administration. COMPARISON: CTA head and neck 08/29/2024. FINDINGS: Vertebrae/osseous structures: Moderate C5 and C6 vertebral body height loss. The cervical vertebral body heights are otherwise preserved. Bone marrow signal is unremarkable. There is congenital shortening of the pedicles and uncovertebral facet hypertrophy. Alignment: No traumatic listhesis. There is degenerative grade 1 retrolisthesis of C5 onto C6. Spinal Cord: Cervical spinal cord is of normal size and signal intensities. Structures at the foramen magnum are unremarkable. C2-3: Mild symmetric disc bulge. No central canal or neural foraminal stenosis. C3-4: Mild symmetric disc bulging results in mild central canal stenosis. No neural foraminal stenosis. C4-5: Mild symmetric disc bulging with congenital shortening of the pedicles and uncovertebral facet hypertrophy results in moderate central canal stenosis. No neural foraminal stenosis. C5-6: Grade 1 retrolisthesis of C5 onto C6. There is disc space narrowing, with broad-based posterior disc-osteophyte complex obliterating the thecal sac. This results in severe central, and severe right and moderate left neural foraminal stenosis. C6-7: Mild disc space narrowing with broad-based posterior disc-osteophyte complex indenting the thecal sac, asymmetric to the left. This results in moderate central, mild right and severe left neural foraminal stenosis. C7-T1: Unremarkable. MRI/Spine Cervical (Routine) IMPRESSION: 1. Severe degenerative central canal stenosis at C5-6, with grade 1 retrolisthe sis of C5 onto C6. 2. Severe right neural foraminal stenosis at C5-6 and severe left neural forami nal stenosis at C6-7. Reading Location: [id number]
--- NOTE | 2024-08-30 09:00 | MRI_ITS ---
EXAM: MR head without contrast CLINICAL HISTORY: WORD FINDING DIFFICULTY, LEFT ARM AND FACE NUMBNESS COMPARISON: CTA head 08/29/2024. TECHNIQUE: MRI of the brain was performed according to standard departmental protocol without IV contrast. FINDINGS: The ventricles, sulci, and cisterns are age-appropriate in size. There is no evidence of intracranial bleed or focal infarction. There is no midline shift, mass effect, or extra-axial collection. No area of restricted diffusion are identified on DWI images. No abnormal T2 bright signal in the white matter is identified. The basal ganglia, karen, pituitary, corpus callosum and cerebellum appear normal. The visualized paranasal sinuses, mastoids, and orbits are unremarkable. The flow voids of the major intracranial vessels are patent. The visualized extracranial structures, within limits of technique, are unremarkable. MRI/Brain without Contrast IMPRESSION: Unremarkable MRI brain without contrast. Reading Location: [id number]
--- NOTE | 2024-08-30 14:27 | PCM.DC.SUM ---
Providers Date of Admission: 08/29/24 Date of Discharge: 08/30/24 Primary Care Physician: Dr. Kevin Srinivasan MD Consultations 08/29/24 15:34 Consult: Tele-Neurology Routine Consulting Provider: [facility] Reason for Consult: Acute Ischemic Stroke/TIA EMERGENT Consult: No MD Notified: Yes Date Notified: 08/29/24 Time Notified: 15:49 Method of Notification: Answering Service Nursing Unit Staff Notify [facility] of Tele-Neurology Consult: Yes Reason For Visit: CVA R/O Diagnosis Discharge Diagnosis (1) Left arm numbness: Status: Acute Code(s): R20.0 - Anesthesia of skin Medications at Discharge Home Medications acetaminophen 325 mg tablet 325 mg PO Q4H PRN Pain 03/22/17 zolpidem 10 mg tablet 1 tab PO QHS 03/22/17 fluoxetine 40 mg capsule (Prozac) 40 mg PO QDAY 07/12/17 methylphenidate HCl 18 mg tablet,extended release 24 hr 18 mg PO DAILY 08/02/24 progesterone micronized 100 mg capsule 100 mg PO DAILY 08/29/24 spironolactone 50 mg tablet 50 mg PO DAILY 08/29/24 tretinoin 0.1 % topical cream 1 applic topical QHS 08/29/24 triamcinolone acetonide 0.1 % topical cream 1 applic topical 4X/DAY burn from retin a 08/29/24 amlodipine 5 mg tablet 5 mg PO DAILY #30 tabs 08/30/24 aspirin 81 mg chewable tablet 81 mg PO BREAKFAST #0 tabs 08/30/24 atorvastatin 80 mg tablet 80 mg PO QHS #30 tabs 08/30/24 clopidogrel 75 mg tablet (Plavix) 75 mg PO DAILY #21 tabs 08/30/24 Hospital Course Operations None Procedures 2-D Echocardiogram, Nuclear stress test and - (CT brain/CTA head and neck/MRI brain/MRI cervical spine) Summary of Care Provided Minutes Spent on Discharge: 39 Hospital Course: Mrs. Villa is a 54-year-old white female who presented to the emergency department [facility] left arm numbness. Symptoms started the day prior to presentation upon awakening and she had some left-sided weakness as well as some dizziness. Patient also reported she had trouble getting words out and was not making sense. She has chronic neck pain with radiculopathy however this was different than her previous symptoms related to her radiculopathy. She complained of ongoing balance difficulties without specific vertigo. Vital signs on presentation showed temperature of 1.3, heart rate 116, blood pressure was initially 196/98 with a repeat of 163/104, and pulse ox was 98% on room air. CBC was completely unremarkable. Coags were normal. Chemistry panel was unremarkable. Initial troponin was 9 with a repeat of 23-1/[address] of the brain and CTA of the head and neck were unremarkable. Patient was admitted for TIA/stroke workup. Stroke protocol was ordered. She was started on aspirin and atorvastatin and permissive hypertension was permitted. MRI of the brain was normal. MRI of the cervical spine was performed and showed severe degenerative central Stenosis at C5-C6 with grade 1 retrolisthesis of C5 on C6 as well as severe right neuroforaminal stenosis at C5 and C6 and severe left foraminal foraminal stenosis at C6-C7. Patient does have follow-up with neurosurgery at [facility] upcoming with planned surgical intervention in the near future. Echocardiogram was performed and showed an EF of 60%, was negative for PFO/ASD and had normal valves. Given her troponin elevation a stress test was performed and negative for any inducible ischemia. We do suspect her troponin elevation was related to her markedly low blood pressure on admission. She was evaluated by neurology and they felt that her symptoms were consistent with TIA. They recommended discontinuing her estrogen patch, starting dual antiplatelet therapy with aspirin and Plavix for 21 days and then stopping Plavix, high intensity dose statin, and blood pressure control to goal which is less than 130/80. Lipid panel was pending at the time of discharge. All of her symptoms were resolved at the time of discharge. Prescriptions for Plavix for 21 days, atorvastatin 80 mg daily, and amlodipine 5 mg daily were prescribed at discharge. She was asked to buy [id number] baby aspirin aspirin and take 1 tablet daily. We have asked that she monitor her blood pressure on a regular basis daily randomly throughout the day, record them and take them to her primary care physician. She is also follow-up with a neurologist of her choosing but was given referral if she decides to follow-up in [place]. We have asked that she follow-up with her primary care physician within the next week. We have also asked that she follow-up with her STAFF PHARMACIST to discuss her estrogen patch use. The above changes were discussed extensively with the patient she voiced understanding. Prescriptions were all sent to local pharmacy at the time of discharge. Discharge diagnoses: TIA Cervical radiculopathy Depression/anxiety Estrogen replacement therapy use Hypertension ADHD Insomnia Physical Exam Const alert, oriented x3, no apparent distress, average body habitus, no limitations, healthy appearing and well nourished Constitutional Narrative: Pleasant, middle-aged, white female, sitting up in bed, appears comfortable, nontoxic General Appearance: cooperative, comfortable, well kempt and well developed Exam Limitations: no limitations HEENT normocephalic, head/scalp atraumatic, hearing grossly normal bilaterally and moist oral mucous membranes HEENT Narrative: Mallampati 2, no thrush Eyes EOMs intact bilaterally Eyes Narrative: No scleral icterus Neck supple Neck Narrative: Trachea midline Resp normal respiratory effort, no retractions, no use of accessory muscles and clear to auscultation bilaterally Auscultation: Negative for rales, rhonchi or wheezes Cardio regular rate, regular rhythm, S1 normal heart sound, S2 normal heart sound, no murmurs, no rub, no gallops and no clicks GI normal to inspection, nondistended, normoactive bowel sounds, soft to palpation and non-tender Extremity no clubbing, cyanosis or edema Extremity Narrative: Pedal and radial pulses are 2+ Skin no jaundice, no petechiae and no mottling Neuro oriented x3, moves all extremities and no focal motor deficits Speech: speech normal Psych affect normal Psych Narrative: Very pleasant, eye contact is good and patient interacts appropriately Weight / BMI Weight Weight: 65 kg Body Mass Index (BMI) 24.5 ABG / Lab / Microbiology Data 08/30/24 05:49 08/29/24 13:03 Laboratory: Laboratory Results - last 24 hr 08/29/24 15:06: Troponin T Hi Sens 2 Hr 23 H 08/29/24 17:20: Troponin T Hi Sens 4Hr 33 H 08/30/24 05:49: WBC 4.5, RBC 4.28, Hgb 13.6, Hct 38.9, MCV 90.9, MCH 31.8, MCHC 35.0, RDW Std Deviation 38.7, RDW Coeff of Colin 11.7, Plt Count 322, MPV 9.5, Immature Gran % (Auto) 0.200, Neut % (Auto) 59.9, Lymph % (Auto) 28.1, [place] % (Auto) 10.0, Eos % (Auto) 0.9, Baso % (Auto) 0.9, Absolute Neuts (auto) 2.7, Absolute Lymphs (auto) 1.27, Nucleated RBC % 0 Radiography Diagnostic Testing: Radiology Impression Head/Neck CTA 08/29/24 13:27 IMPRESSION: Unremarkable examination. Reading Location: [facility] Echocardiogram 08/29/24 15:22 Interpretation Summary Normal LV size. Left ventricular systolic function is normal. The left ventricular ejection fraction is 60 %. Bubble contrast study is negative for PFO/ASD. Ordering Physician: Savannah Gonzalez Performed By: Gallo El [facility] Brain MRI 08/30/24 09:00 IMPRESSION: Unremarkable MRI brain without contrast. Reading Location: [facility] Cervical Spine MRI 08/30/24 09:00 IMPRESSION: 1. Severe degenerative central canal stenosis at C5-6, with grade 1 retrolisthesis of C5 onto C6. 2. Severe right neural foraminal stenosis at C5-6 and severe left neural foraminal stenosis at C6-7. Reading Location: [facility] D/C Instructions Discharge Diet: Low fat / Low cholesterol Discharge Activity: Return to Normal Activity Return to work on: 08/31/24 DC O2, CPAP, BIPAP Needs Home O2 Discharge instructions: No Meaningful Use Info Meaningful Use Meaningful Use Diagnoses (Choose all that apply): None applicable Ischemic Stroke Statin Dosing Therapy Reference: STATIN DOSE THERAPY REFERENCE: * Patients > 75 years receive moderate or high dose statin therapy. * Patients 75 years or YOUNGER should receive HIGH intensity statin dose unless contraindicated. You will be required to document reason for non-treatment if statin daily dose does not meet guidelines. HIGH DOSE STATIN THERAPY DAILY Atorvastatin > than or = to 40 mg Rosuvastatin > than or = to 20 mg Amlodipine + Atorvastatin > than or = to 2.5/40 mg Ezetimibe + Simvastatin 10/80 mg Simvastatin 80mg Discharge Plan Admission Admit Date/Time: 08/29/24 15:13 Primary Reason for Your Visit: Left-sided numbness Attending Provider: Kathia Ware Primary Care Provider: Kevin Srinivasan Consulting Providers: Randall Mcbride; Darren Harman; Lisha Xavier; Юлия Kimball; Nicole Guevara; Josh Ferrera; Samira Chakraborty; Yazan Reddy; Gene Medrano; Norberto Tipton; Wanda Llanos; Sarabjit Vitale; Lydia Lopez; Wilner Frazier; Bonnie Fulton Lj; Kofi Rojas; Roma Mercado; Kory Recio; Rachel Ware; Jurgen Sorenson; Savannah Gonzalez Instructions Additional Instructions / Restrictions: 1. As discussed please stop your estrogen patch okay to continue progesterone and follow-up with your STAFF PHARMACIST 2. Please check your blood pressure randomly throughout the day at home and keep track of this. We did start amlodipine at a low dose to address your blood pressure and follow-up with your primary care physician. Your goal blood pressure overall should be less than 130/80 on a consistent basis 3. Plan is for aspirin and Plavix for 21 days to decrease your recurrent stroke/TIA risk and then discontinue Plavix and continue aspirin indefinitely - Avoid taking NSAIDs including ibuprofen and naproxen while on dual antiplatelet therapy with aspirin and Plavix 4. Please follow-up with neurology neurologist noted below or neurologist of your choosing 5. Please continue follow-up with your orthopedic/neurosurgeon for your cervical spine issues Discharge Orders/Prescriptions Prescriptions: New atorvastatin 80 mg Tablet 80 mg PO QHS Qty: 30 1RF aspirin 81 mg Tablet,Chewable 81 mg PO BREAKFAST Qty: 0 0RF clopidogrel [Plavix] 75 mg tablet 75 mg PO DAILY Qty: 21 0RF amlodipine 5 mg tablet 5 mg PO DAILY Qty: 30 0RF Continued fluoxetine [Prozac] 40 mg capsule 40 mg PO QDAY acetaminophen 325 MG tablet 325 mg PO Q4H PRN zolpidem 10 MG tablet 1 tab PO QHS Patient Comments: PT TOOK 1/2 TABLET 08/28 methylphenidate HCl 18 mg tablet extended release 24hr 18 mg PO DAILY tretinoin 0.1 % cream 1 applic topical QHS triamcinolone acetonide 0.1 % cream 1 applic topical 4X/DAY spironolactone 50 mg tablet 50 mg PO DAILY progesterone micronized 100 mg capsule 100 mg PO DAILY Discontinued gabapentin 100 mg capsule 100 mg PO TID estradiol [Kari] 0.05 mg/24 hr patch semiweekly 1 patch transdermal .COMPLEX Rx Instructions: 1 patch transdermally TWICE WEEKLY; ibuprofen [Advil] 200 mg tablet 200 mg PO Q8H PRN (Reason: pain) Referrals / Follow Up: Kevin Srinivasan MD [Primary Care Provider] - Within 1 Week Russ Dubose MD [Non-Staff -Ordering Privileges] - Within 3 Months Disposition Disposition (needs filled in before D/C Order can be placed): Home, Self Care Charges/Coding Visit Charges Inpatient E&M: 65090 Disch Hosp >30min
--- NOTE | 2024-08-30 15:09 | PHA.DC.MC.R ---
Pharmacy [facility] has performed discharge medication reconciliation and counseling for this patient. 1. AMLODIPINE 5MG PO DAILY 2. ASPIRIN 81MG PO DAILY 3. ATORVASTATIN 80MG PO QHS 4. CLOPIDOGREL 75MG PO DAILY X 21 DAYS The patient's discharge medication list was reviewed for discrepancies and discrepancies were resolved. The patient was counseled on the following discharge medications and changes in medications for homegoing were reviewed. The Reason for Use, instructions for use, and potential side effects were reviewed for all new medications. The patient's questions regarding all of their medications were answered. The patient was able to verbally demonstrate an understanding of their discharge medications. Patient counseled by on call pharmacy technician, Anshul. Medications at Discharge Home Medications acetaminophen 325 mg tablet 325 mg PO Q4H PRN Pain 03/22/17 zolpidem 10 mg tablet 1 tab PO QHS 03/22/17 fluoxetine 40 mg capsule (Prozac) 40 mg PO QDAY 07/12/17 methylphenidate HCl 18 mg tablet,extended release 24 hr 18 mg PO DAILY 08/02/24 progesterone micronized 100 mg capsule 100 mg PO DAILY 08/29/24 spironolactone 50 mg tablet 50 mg PO DAILY 08/29/24 tretinoin 0.1 % topical cream 1 applic topical QHS 08/29/24 triamcinolone acetonide 0.1 % topical cream 1 applic topical 4X/DAY burn from retin a 08/29/24 amlodipine 5 mg tablet 5 mg PO DAILY #30 tabs 08/30/24 aspirin 81 mg chewable tablet 81 mg PO BREAKFAST #0 tabs 08/30/24 atorvastatin 80 mg tablet 80 mg PO QHS #30 tabs 08/30/24 clopidogrel 75 mg tablet (Plavix) 75 mg PO DAILY #21 tabs 08/30/24
--- NOTE | 2024-08-30 15:29 | CASEMGMT ---
Patient has order for discharge. RN CM in to discuss needs at discharge. Patient denies needs or help at discharge. Patient had no further questions or concerns.
--- NOTE | 2024-08-30 17:14 | STROKE.CONS ---
Assessment and Plan: Stroke Assessment/Plan WOJCIECH GILES is a 54 F with a history of cervical DDD with chronic L arm radicular pain and paresthesias, menopause on HRT (estrogen/progesterone patch), pre-diabetes, concern for high blood pressure (no formal diagnosis), who presents for evaluation of transient left sided face, arm and leg numbness and weakness. Neurological examination shows NIHSS 0. Neuroimaging shows no acute ischemia. Clinical history and examination consistent with TIA. 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 No emergent surgical needs as no weakness or severe myelopathic signs observed on examination. HPI Consult Data Date of Consult: 08/30/24 HPI Narrative HPI Narrative: WOCJIECH GILES, is a 54 F who presents with transient left sided face, arm and leg numbness and weakness. Patient reports chronic radicular left neck pain that radiates to down the left arm and causes tingling for years. She states she has known severe cervical DDD and is planned for surgical planning this summer. She states the symptoms she presents with are DIFFERENT and NOT similar to the chronic symptoms she faces with her known DDD. She reports LKW Wednesday night 08/28. She woke up Tuesday 08/29 and noted that her left shoulder, arm and hand (the entire left upper extremity) was numb. She usually feels shooting pain and tingling but this felt entirely numb. She also had left facial tingling and altered sensorium. She then developed heaviness in her left leg and it felt weaker than her right leg and she had more difficulty ambulating. She felt unsteady on her leg. She stated these symptoms had never occurred before. She denied headache, vision changes, speech changes, bowel/bladder issues. Stroke RF: She states she is on HRT for the past 1.5 years prescribed by her OBGYN because of being menopausal and having severe hot flashes. She smoked years ago, but is no longer active. She states she has HLD. She states she has pre-diabetes. She states of recent she has noticed her BP has been higher but has not been yet diagnosed with HTN. She is not on any medication for DM/HTN/HLD. This morning she states she is feeling better and her symptoms have improved. What remains is her typical radicular pain and paresthesias in her left arm. MRI brain without acute ischemia. MRI Cervical spine with severe cervical disc disease. Vessel imaging without proximal LVO. TTE without PFO or cardiac thrombus. LDL and A1C pending. She has been started on ASA and statin. [facility] Medical History (Updated 08/29/24 @ 15:[address] Savannah Gonzalez MD) History of kidney stones History of skin cancer Home Medications ?Medication ?Instructions ?Recorded ?Last Taken ?Type acetaminophen 325 mg tablet 325 mg PO Q4H PRN Pain 03/22/17 08/28/24 History zolpidem 10 mg tablet 1 tab PO QHS 03/22/17 08/28/24 History fluoxetine 40 mg capsule (Prozac) 40 mg PO QDAY 07/12/17 08/27/24 History methylphenidate HCl 18 mg 18 mg PO DAILY 08/02/24 08/28/24 History tablet,extended release 24 hr progesterone micronized 100 mg 100 mg PO DAILY 08/29/24 08/27/24 History capsule spironolactone 50 mg tablet 50 mg PO DAILY 08/29/24 08/25/24 History tretinoin 0.1 % topical cream 1 applic topical QHS 08/29/24 08/22/24 History triamcinolone acetonide 0.1 % 1 applic topical 4X/DAY burn from 08/29/24 08/28/24 History topical cream retin a amlodipine 5 mg tablet 5 mg PO DAILY #30 tabs 08/30/24 Unknown Rx aspirin 81 mg chewable tablet 81 mg PO BREAKFAST #0 tabs 08/30/24 Unknown Rx atorvastatin 80 mg tablet 80 mg PO QHS #30 tabs 08/30/24 Unknown Rx clopidogrel 75 mg tablet (Plavix) 75 mg PO DAILY #21 tabs 08/30/24 Unknown Rx Allergy/AdvReac Type Severity Reaction Status Date / Time Sulfa (Sulfonamide Allergy Intermediate Hives Verified 08/29/24 12:28 Antibiotics) Latex, Natural Rubber Allergy Mild itching Verified 08/29/24 12:28 Family History Other Breast cancer Heart disease Kidney disease Myocardial infarction Social History Smoking Status: Former smoker alcohol intake: current alcohol intake frequency: 0-2 drinks per day substance use type: does not use what type of physical activity do you participate in: none Vital Signs Vital Signs Vital Signs: 08/29/24 19:00 08/29/24 19:25 08/29/24 19:49 Temperature 98.3 F Temperature Source Oral Pulse Rate 92 94 Respiratory Rate 16 Respiratory Effort Normal Non-Labored Respiratory Depth Normal Respiratory Pattern Normal Blood Pressure 133/80 H Blood Pressure Mean 97 Blood Pressure Source Monitor Blood Pressure Position Semi-Fowlers Blood Pressure Location Right Arm Pulse Ox 98 Oxygen Delivery Method Room Air Room Air 08/29/24 22:32 08/30/24 03:00 08/30/24 03:30 Temperature 98.1 F 97.8 F Temperature Source Oral Oral Pulse Rate 90 104 H 74 Respiratory Rate 16 15 Respiratory Effort Respiratory Depth Respiratory Pattern Blood Pressure 153/82 H 134/73 H Blood Pressure Mean 105 93 Blood Pressure Source Monitor Monitor Blood Pressure Position Semi-Fowlers Supine Blood Pressure Location Right Arm Right Arm Pulse Ox 98 98 Oxygen Delivery Method Room Air Room Air 08/30/24 07:30 08/30/24 07:30 08/30/24 09:27 Temperature 99.2 F H Temperature Source Temporal Pulse Rate 84 103 H Respiratory Rate 16 16 Respiratory Effort Normal Non-Labored Respiratory Depth Respiratory Pattern Blood Pressure 129/83 H 166/91 H Blood Pressure Mean 98 116 Blood Pressure Source Monitor Monitor Blood Pressure Position Semi-Fowlers Supine Blood Pressure Location Right Arm Left Arm Pulse Ox 99 96 Oxygen Delivery Method Room Air Room Air Room Air 08/30/24 09:37 08/30/24 09:47 08/30/24 09:57 Temperature Temperature Source Pulse Rate 89 88 90 Respiratory Rate 16 16 16 Respiratory Effort Respiratory Depth Respiratory Pattern Blood Pressure 142/77 H 150/70 H 152/90 H Blood Pressure Mean 98 96 110 Blood Pressure Source Monitor Monitor Monitor Blood Pressure Position Supine Supine Supine Blood Pressure Location Left Arm Left Arm Left Arm Pulse Ox 95 96 92 Oxygen Delivery Method Room Air Room Air Room Air 08/30/24 10:07 08/30/24 10:17 08/30/24 11:57 Temperature 97.3 F L Temperature Source Temporal Pulse Rate 88 93 98 Respiratory Rate 16 16 18 Respiratory Effort Respiratory Depth Respiratory Pattern Blood Pressure 137/80 H 143/78 H 135/78 H Blood Pressure Mean 99 99 97 Blood Pressure Source Monitor Monitor Monitor Blood Pressure Position Supine Supine Semi-Fowlers Blood Pressure Location Left Arm Left Arm Right Arm Pulse Ox 97 96 100 Oxygen Delivery Method Room Air Room Air Room Air 08/30/24 15:55 Temperature 98.0 F Temperature Source Temporal Pulse Rate 92 Respiratory Rate 15 Respiratory Effort Respiratory Depth Respiratory Pattern Blood Pressure 132/76 H Blood Pressure Mean 94 Blood Pressure Source Monitor Blood Pressure Position Semi-Fowlers Blood Pressure Location Right Arm Pulse Ox 97 Oxygen Delivery Method Room Air Weight Weight: 65 kg Body Mass Index (BMI) 24.5 EEG Results Procedure Details EEG Procedure Details: WOJCIECH GILES is a 54 year old F with a past medical history of , who presents for evaluation of Electroencephalogram on DATE at TIME Lab / Micro Data 08/30/24 05:49 08/29/24 13:03 Labs: Laboratory Results - last 24 hr 08/29/24 15:06: Troponin T Hi Sens 2 Hr 23 H 08/29/24 17:20: Troponin T Hi Sens 4Hr 33 H 08/30/24 05:49: WBC 4.5, RBC 4.28, Hgb 13.6, Hct 38.9, MCV 90.9, MCH 31.8, MCHC 35.0, RDW Std Deviation 38.7, RDW Coeff of Colin 11.7, Plt Count 322, MPV 9.5, Immature Gran % (Auto) 0.200, Neut % (Auto) 59.9, Lymph % (Auto) 28.1, Delta % (Auto) 10.0, Eos % (Auto) 0.9, Baso % (Auto) 0.9, Absolute Neuts (auto) 2.7, Absolute Lymphs (auto) 1.27, Nucleated RBC % 0 Imaging Radiology Impression Echocardiogram 08/29/24 15:22 Interpretation Summary Normal LV size. Left ventricular systolic function is normal. The left ventricular ejection fraction is 60 %. Bubble contrast study is negative for PFO/ASD. Ordering Physician: Savannah Gonzalez Performed By: Gallo El [facility] Brain MRI 08/30/24 09:00 IMPRESSION: Unremarkable MRI brain without contrast. Reading Location: [facility] Cervical Spine MRI 08/30/24 09:00 IMPRESSION: 1. Severe degenerative central canal stenosis at C5-6, with grade 1 retrolisthesis of C5 onto C6. 2. Severe right neural foraminal stenosis at C5-6 and severe left neural foraminal stenosis at C6-7. Reading Location: [facility] NIHSS NIHSS Nursing Documentation NIHSS Nursing Documentation: NIHSS: Ischemic Stroke/TIA Start: 08/29/24 15:34 Text: For PCU Patients: NIH and Neuro Check every 4 Status: Discharge hours, PRN and with change in RN caregiver. Freq: [id number] Protocol: Activity Type Activity Date Activity User E-sign Co-sign Detail Recorded Client Recorded Date Recorded By Document 08/30/24 15:55 ML [id number] 08/30/24 16:14 ML 08/30/24 15:55 NIH Stroke Scale [NIHSS] A score of 0 is normal or asymptomatic . Total possible score is 42. Inpatient: RN or Physician to activate a stroke alert for onset of new stroke symptoms or with NIHSS increase >/= 3 points. Following change in neurological status, NIHSS will be performed per physician order or more frequently PRN. -1a. Level of Consciousness 0 - Alert; keenly responsive -1b. LOC Questions 0 - Answers BOTH questions correctly -1c. LOC Commands 0 - Performs BOTH tasks correctly -2. Best Gaze 0 - Normal -3. Visual 0 - No visual loss -4. Facial Palsy 0 - Normal symmetrical movements -5a. Left Arm 0 - No drift; arm holds 90 ( or 45) degrees for full 10 seconds -5b. Right Arm 0 - No drift; arm holds 90 ( or 45) degrees for full 10 seconds -6a. Left Leg 0 - No drift; leg holds 30- degree position for full 5 seconds -6b. Right Leg 0 - No drift; leg holds 30- degree position for full 5 seconds -7. Limb Ataxia 0 - Absent -8. Sensory 0 - Normal; no sensory loss -9. Best Language 0 - No aphasia; normal -10. Dysarthria 0 - Normal -11. Extinction and Inattention 0 - No abnormality -Total 0 Query Text:A score of 0 is normal or asymptomatic. Total possible score is 42 . ED: Notify Physician for NIHSS increase by > / = 3 points. Inpatient: RN or Physician to activate a stroke alert for NIHSS increase of > / = 3 points. Coma Scale [Assess] -Eye Opening Spontaneous -Motor Obeys Commands -Verbal Oriented [Total] -Coma Scale Total 15 NIHSS 1a. Level of Consciousness: 0 - Alert; keenly responsive 1b. LOC Questions: 0 - Answers BOTH questions correctly 1c. LOC Commands: 0 - Performs BOTH tasks correctly 2. Best Gaze: 0 - Normal 3. Visual: 0 - No visual loss 4. Facial Palsy: 0 - Normal symmetrical movements 5a. Left Arm: 0 - No drift; arm holds 90 (or 45) degrees for full 10 seconds 5b. Right Arm: 0 - No drift; arm holds 90 (or 45) degrees for full 10 seconds 6a. Left Le - No drift; leg holds 30-degree position for full 5 seconds 6b. Right Le - No drift; leg holds 30-degree position for full 5 seconds 7. Limb Ataxia: 0 - Absent 8. Sensory: 0 - Normal; no sensory loss 9. Best Language: 0 - No aphasia; normal 10. Dysarthria: 0 - Normal 11. Extinction and Inattention: 0 - No abnormality Total: 0
--- NOTE | 2024-08-30 17:14 | STRESSREP ---
Stress Test Report Pharmacologic myocardial perfusion stress test. 54-year-old lady with a history of chest pain Resting EKG demonstrates sinus rhythm with a rate of 93 bpm. Resting blood pressure is 158/92 mmHg. 0.4 mg of regadenoson was infused per usual protocol followed by rapid intravenous saline flush injection. Continuous EKG monitoring was performed. The maximum heart rate was 142 bpm which was 85% of max impacted heart rate the maximum workload was 1 metabolic equivalent. At rest there were no ST or T wave changes noted to suggest ischemia and at peak infusion nonspecific ST changes were noted which did not meet the criteria for ischemia. No clinical angina is noted. The final blood pressure was 120/82 mmHg. Myocardial perfusion protocol. 11.8 mCi of technetium 99m sestamibi was injected at rest. 0.4 mg of regadenoson was infused per usual protocol. At peak infusion 34.1 mCi of technetium 99m sestamibi was injected stress images were obtained stress and rest images were reconstructed and compared in the short axis vertical long and horizontal long axis. Gated images were also obtained. Perfusion SPECT analysis: Review of the stress images demonstrate normal uptake of tracer noted in all areas of the myocardium. The resting images similar demonstrated normal uptake of tracer noted in all areas of the myocardium. No areas of reversibility are noted to suggest ischemia and no previous infarct is noted. Gated SPECT analysis: The gated ejection fraction is 78%. Conclusion: Normal pharmacologic myocardial perfusion stress test. Preserved ejection fraction.
[2024-08-30 20:43] LABS: Cholesterol 209 mg/dL (<=200); High Density Lipoprotein 71 mg/dL; Low Density Lipoprotein Calc. 120 mg/dL; Triglycerides 91 mg/dL; Very Low Density Lipoprotein 18 mg/dL (5-40); cholesterol:hdl ratio screen 2.94
[2024-08-30 21:05] LABS: Anion Gap 12 (5-15); BUN 9 mg/dL (4-19); BUN/Creat Ratio 12.9 RATIO (10-20); Calcium,Total 9.3 mg/dL (7.6-11.0); Chloride 102 mmol/L (98-108); Creatinine, Serum 0.67 mg/dL (0.70-1.20); EST Glomerular Filtration Rate 104 (>60); Estimated Creatinine Clearance 83.85 ml/min (50-250); Glucose 106 mg/dL (70-99); Potassium 3.9 mmol/L (3.3-5.1); Sodium Level 136 mmol/L (133-145)
== END 2024-08-30 16:13 | disposition home or self-care (01) ==
LOC: ED 13:09 → PCU 15:22
PROVIDERS: Admitting Provider Internal Medicine; Emergency Provider Emergency Medicine; PCP Family Medicine; Visit Provider Internal Medicine
DX: G45.9 Transient cerebral ischemic attack, unspecified (principal); G89.29 Other chronic pain; F90.9 Attention-deficit hyperactivity disorder, unspecified type; E78.5 Hyperlipidemia, unspecified; M50.10 Cervical disc disorder with radiculopathy, unspecified cervical region; M43.12 Spondylolisthesis, cervical region; M48.02 Spinal stenosis, cervical region; R73.03 Prediabetes; G47.00 Insomnia, unspecified; F40.240 Claustrophobia; F32.A Depression, unspecified; F41.9 Anxiety disorder, unspecified; Z78.0 Asymptomatic menopausal state; Z79.82 Long term (current) use of aspirin; Z79.02 Long term (current) use of antithrombotics/antiplatelets; Z79.899 Other long term (current) drug therapy; Z87.891 Personal history of nicotine dependence; R79.89 Other specified abnormal findings of blood chemistry
CPT/HCPCS: 36415; 70496; 70498; 70551; 72141; 78452; 80048; 80061; 82962; 84484; 85025; 85610; 85730; 93005; 93017; 93306; 96374; 97802; 99221; 99285; A9500; Q9957; Q9967; A4216; G0378; J2785